=== PATIENT | female | born 1985 | race Caucasian/White ===

== ENCOUNTER 2018-10-30 12:28 | Emergency (ER) | payer BC, SELFPAY ==
[2018-10-30 12:53] VITALS: BP 136/96; PULSE 80; RESP 20; TEMP 37; O2SAT 99; BMI 39.9
--- NOTE | 2018-10-30 14:03 | ED_ITS ---
HPI - Eye Problem General Chief complaint: Eye Problems Stated complaint: eye swelling/taking Prednesone x3 days Time Seen by Provider: 10/30/18 13:34 Source: patient Mode of arrival: ambulatory Limitations: no limitations History of Present Illness HPI Narrative: 33-year-old female here for evaluation of swelling around her left eye. She has been seen by her primary doctor for this approximately 3 days ago and has been on 3 days of prednisone. She is not currently on any antibiotics. There was concern during this initial visit that she potentially had cellulitis however she was not started on antibiotics. Patient reports no vision changes. She does wear contacts but has not been wearing contacts since the start of the symptoms. No foreign body sensation. No pain with movement of her eye. She stated that after 2 doses of the steroids symptoms actually started to improve however they did worsen today. She has tried some Benadryl but she states that he did not help all that much and only made her tired. She came into the emergency department she felt the symptoms were getting worse today Related Data Previous Rx's Medication Instructions Recorded hydroxyzine HCl 25 mg PO TID-QID PRN #20 tab 10/30/18 Allergies Allergy/AdvReac Type Severity Reaction Status Date / Time erythromycin base Allergy Verified 10/30/18 12:57 [From Erythrocin] Review of Systems Constitutional Constitutional: Denies fatigue and Denies fever(s) Eyes Eyes: Denies blurry vision, Denies change in vision, Denies diplopia, Denies eye discharge, Denies dry eyes, Denies loss of vision, Denies seeing flashes, Denies photophobia, Denies spots in vision and Denies tunnel vision Comments: Redness and swelling around the left eye ENT Ears, Nose, Mouth, and Throat: Denies dental pain, Denies dysphagia, Denies vertigo, Denies disequilibrium, Denies sinus pressure, Denies sore throat and Denies throat swelling Gastrointestinal Gastrointestinal: Denies dysphagia Integumentary/Breasts Comments: Redness and swelling around the left eye Neurologic Neurologic: Denies confusion, Denies vertigo, Denies loss of vision and Denies disequilibrium Psychiatric Psychiatric: Denies confusion Endocrine Endocrine: Denies fatigue Hematologic/Lymphatic Hematologic/Lymphatic: Denies easy bleeding and Denies easy bruising Allergic/Immunologic Allergic/Immunologic: Denies throat swelling [facility] Medical History Patient denies medical problems (Acute) Social History Smoking Status: Never smoker Social History Smoking Status: Never smoker Exam Initial Vital Signs Initial Vital Signs: Vital Signs Temperature 98.6 F 10/30/18 12:53 Pulse Rate 80 10/30/18 12:53 Respiratory Rate 20 10/30/18 12:53 Blood Pressure 136/96 H 10/30/18 12:53 Pulse Oximetry 99 10/30/18 12:53 Const General: cooperative, well developed, well groomed and No acute distress Orientation: alert and awake HENAL Head: normal to inspection and normocephalic Ears: TM's normal bilaterally Nose: external nose normal Eyes Periorbital: periorbital findings abnormal left periorbital swelling and periorbital erythema Conjunctivae: conjunctivae normal Sclera: sclerae normal Pupils: PERRL EOM: EOM intact bilaterally Direct ophthalmoscopy: normal light reflex Skin Other: Patient with some swelling and redness mostly under the left eye but also extending to the upper eyelid Neuro General: alert and awake Extrem General: normal to inspection and capillary refill normal Course Vital Signs Vital signs: Vital Signs - 8 hr 10/30/18 12:53 10/30/18 14:15 Temperature 98.6 F Pulse Rate 80 87 Respiratory Rate 20 17 Blood Pressure 136/96 H Blood Pressure [Left Arm] 150/97 H Pulse Oximetry 99 100 MDM - Eye Problem MDM Narrative Medical decision making narrative: Patient's redness and swelling seems to be isolated to the area under her left eye and also the left upper eyelid. The sclera and conjunctiva appear unremarkable. She has no drainage from this eye. Low suspicion for foreign body or corneal abrasion. Also low suspicion for conjunctivitis. Her redness and swelling is also more consistent with an allergic reaction rather than a cellulitis. I have low suspicion for orbital cellulitis and/or preseptal cellulitis. Will hold on antibiotics. Will start on Atarax for her symptoms. She is going to continue the prednisone. She was given return precautions and follow-up instructions. She is going to contact her primary doctor on Wednesday. She expressed understanding and agreement with plan. Discharge Plan Departure Patient Disposition: Home Clinical Impression: Allergic reaction Qualifiers: Encounter type: initial encounter Qualified Code(s): T78.40XA - Allergy, unspecified, initial encounter Discharge Date/Time: 10/30/18 14:20 Instructions: DI for Eye Allergic Reaction Activity Restrictions/Additional Instructions: Continue the prednisone as directed. Start taking the Atarax as directed. Contact your primary provider on Wednesday for a follow-up. Return to the emergency department for any new or worsening symptoms Prescriptions: New hydroxyzine HCl 25 mg tablet 25 mg PO TID-QID PRN (Reason: itching) Qty: 20 RF: 0 Referrals: Lety Medel ARNP [Primary Care Provider] -
[2018-10-30 14:15] VITALS: BP 150/97; PULSE 87; RESP 17; O2SAT 100
== END 2018-10-30 14:20 | disposition home or self-care (01) ==
PROVIDERS: Emergency Provider Emergency Medicine; PCP Nurse Practitioner Family
DX: T78.40XA Allergy, unspecified, initial encounter (principal)
CPT/HCPCS: 99283